=== PATIENT | female | born 1945 | race Caucasian/White ===

== ENCOUNTER → 2018-03-06 12:54 | Outpatient (CLI) | payer OTHER, SELFPAY ==
--- NOTE | 2018-03-06 | DI.US.S_ITS ---
PROCEDURE: US CAROTID DOPPLER BI INDICATIONS: TRANSIENT CEREBRAL ISCHEMIC ATTACK TECHNIQUE: Color and pulse Doppler interrogation was performed of both carotid systems, with image documentation and velocity measurements. COMPARISON: None. FINDINGS: Stenosis calculations are based on SRU (Society of Radiologists in Ultrasound) criteria. Right side: Brachial blood pressure: 131/78 mm Hg. Common carotid artery peak systolic velocity: 111 cm/sec. Internal carotid artery peak systolic velocity: 67 cm/sec. Internal carotid artery end diastolic velocity: 23 cm/sec. External carotid artery peak systolic velocity: 87 cm/sec. ICA/CCA peak systolic ratio: 0.6. Reyna scale imaging description: No calcific or soft plaque Percent internal carotid artery stenosis: None found. Vertebral artery: Flow direction is antegrade. Left side: Brachial blood pressure: 137/75 mm Hg. Common carotid artery peak systolic velocity: 104 cm/sec. Internal carotid artery peak systolic velocity: 77 cm/sec. Internal carotid artery end diastolic velocity: 24 cm/sec. External carotid artery peak systolic velocity: 90 cm/sec. ICA/CCA peak systolic ratio: 0.7. Reyna scale imaging description: Mild soft plaque Percent internal carotid artery stenosis: Less than 50% stenosis. Vertebral artery: Flow direction is antegrade. IMPRESSION: Less than 50% stenosis within the proximal left internal carotid artery, and no stenosis suspected on the right. Dictated by: Sundeep Reis M.D. on 03/06/2018 at 14:32 Approved by: Sundeep Reis M.D. on 03/06/2018 at 14:34
== END ==
PROVIDERS: PCP Internal Medicine; Visit Provider Internal Medicine
DX: I65.22 Occlusion and stenosis of left carotid artery (principal)
CPT/HCPCS: 93880

== ENCOUNTER → 2019-03-13 12:45 | Outpatient (CLI) | payer OTHER, SELFPAY ==
--- NOTE | 2019-03-13 | DI.RAD.S_ITS ---
PROCEDURE: XR HIP W PEL IF DONE BILAT 2V INDICATIONS: BILAT HIP PAIN TECHNIQUE: AP pelvis with lateral view(s) of the bilateral hip(s). COMPARISON: None. FINDINGS: Bones: No fractures or dislocations. Pelvic ring appears intact. No suspicious bony lesions. There is mild bilateral hip joint space narrowing. There is sclerosis of the bilateral sacroiliac joints. Soft tissues: The visualized bowel gas pattern is normal. No suspicious soft tissue calcifications. IMPRESSION: Mild hip joint space narrowing suggesting mild hip osteoarthritis. Mild sacroiliac joint sclerosis. No acute radiographic findings. Dictated by: Mare Pate M.D. on 03/13/2019 at 16:54 Approved by: Mare Pate M.D. on 03/13/2019 at 16:55
== END ==
PROVIDERS: PCP Internal Medicine; Visit Provider Internal Medicine
DX: M25.551 Pain in right hip (principal); M25.552 Pain in left hip
CPT/HCPCS: 73521

== ENCOUNTER 2022-02-17 12:43 | Emergency (ER) | payer OTHER, SELFPAY ==
[2022-02-17 12:50] VITALS: BP 175/86; PULSE 90; RESP 16; TEMP 37; O2SAT 96; BMI 21.6
--- NOTE | 2022-02-17 12:56 | DI.RAD.S_ITS ---
PROCEDURE: XR CHEST 1V INDICATIONS: chest pain TECHNIQUE: One view of the chest was acquired. COMPARISON: None. FINDINGS: Surgical changes and devices: Bilateral breast implants. Lungs and pleura: A calcific density in the left lower lung zone suspicious for an old granuloma. Small calcified granuloma are also suspected in right upper lung zone. Mild hyperinflation consistent with COPD. Lungs are otherwise clear. No pleural effusions or pneumothorax. Mediastinum: Mediastinal contours appear normal. Heart size is normal. Bones and chest wall: No suspicious bony lesions. Overlying soft tissues appear unremarkable. IMPRESSION: 1. No acute cardiopulmonary disease. 2. Suspect calcified granulomas in the lungs bilaterally. Dictated by: Mukesh Ross M.D. on 02/17/2022 at 13:40 Approved by: Mukesh Ross M.D. on 02/17/2022 at 13:41
[2022-02-17 13:31] LABS: Add Manual Diff / Slide Review NO; Basophils Absolute Auto 100 /uL (0-100); Basophils Percent Auto 1.1 % (0-2); Eosinophils Absolute Auto 100 /uL (0-450); Eosinophils Percent Auto 1.8 % (2-4); Hemoglobin 15.1 g/dL (12.0-16.0); Lymphocytes Absolute Auto 1000 /uL (1100-4500); Lymphocytes Percent Auto 17.7 % (25-40); Mean Corpuscular HGB Conc 33.4 % (30-36); Mean Corpuscular Hemoglobin 30.3 PG (26-34); Mean Corpuscular Volume 90.7 fL (80-100); Monocytes Absolute Auto 500 /uL (0-900); Monocytes Percent Auto 9.2 % (3-14); Neutrophils Absolute Auto 3900 /uL (1500-7000); Neutrophils Percent Auto 70.2 % (50-75); Platelet Count 285 X10^3/uL (150-400); Red Blood Cell Count 4.96 X10^6/uL (4.0-5.2); Red Cell Distribution Width 14.3 % (11.6-14.8); White Blood Cell Count 5.6 X10^3/uL (4.5-11.0)
[2022-02-17 13:36] LABS: Alanine Aminotransferase 15 IU/L (<35); Albumin 4.3 g/dL (3.5-5.0); Albumin Globulin Ratio 1.7 (1.0-2.8); Alkaline Phosphatase 67 U/L (38-126); Aspartate Aminotransferase 25 IU/L (14-36); BUN Creatinine Ratio 36.8 (6-22); Bilirubin Total 0.5 mg/dL (0.2-1.3); Blood Urea Nitrogen 25 mg/dL (7-17); Calcium 9.9 mg/dL (8.4-10.2); Carbon Dioxide 32 mmol/L (22-32); Chloride 104 mmol/L (98-107); Creatine Kinase 37 U/L (30-135); Estimated Glomerular Filt Rate > 60 mL/min (>60); Globulin 2.5 g/dL (1.7-4.1); Glucose 94 mg/dL (80-110); HEMOLYSIS < 15 (0-50); Lipase 193 U/L (23-300); Magnesium 2.3 mg/dL (1.6-2.3); Potassium 4.1 mmol/L (3.4-5.1); Sodium 138 mmol/L (137-145); Total Protein 6.8 g/dL (6.3-8.2)
[2022-02-17 13:47] LABS: Troponin I < 0.012 ng/mL (0.01-0.034)
--- NOTE | 2022-02-17 16:32 | PC.NURSE ---
Provider aware of pt refusal of trop/EKG.
[2022-02-17 16:34] VITALS: BP 185/89; PULSE 81; RESP 18; O2SAT 97
--- NOTE | 2022-02-17 19:55 | ED.CHESTPAIN ---
HPI - Chest Pain <LADONNA Washington - Last Filed: 02/17/22 20:06> General Chief Complaint: Chest Pain Stated Complaint: Chest pain Time Seen by Provider: 02/17/22 13:55 Source: patient Mode of arrival: Ambulatory Limitations: no limitations History of Present Illness HPI narrative: This is a 76-year-old female presents to the emergency department complaining of bilateral breast pain which she is sure is related to her breast implants which were placed in 1986. Patient states that she has had this pain for years, she lives on [facility] and states that she is not getting OBGYN care that she is looking for, she wants to have her breast implants removed, she is seeking an ultrasound of them today to evaluate why she has pain. Patient states that she is [place] and does not want to take any pain medications, she does not feel like she is cared for by her care providers where she lives. There was a long wait in the emergency department today and the nurse initiated order set for chest pain was selected. Patient denies any chest pain or chest pressure underneath her sternum, she states that her pain is more on the external and she is not sure why she has this pain every day since July of 2021. Related Data Home Medications Medication Instructions Recorded Confirmed albuterol sulfate 90 mcg/actuation 1 puff INH PRN PRN ##0 02/28/17 aerosol inhaler (Ventolin HFA) amlodipine 5 mg tablet (Norvasc) 5 mg PO Q DAY ##0 02/28/17 losartan 50 mg tablet 50 mg PO QDAY ##0 02/28/17 Allergies Allergy/AdvReac Type Severity Reaction Status Date / Time No Known Allergies Allergy Uncoded 10/25/17 12:46 Review of Systems <LADONNA Washington - Last Filed: 02/17/22 20:06> Review of Systems Narrative: General: denies fever, chills, malaise, sweats, fatigue Head/Neck: denies headache, neck pain, dizziness Eyes: denies visual changes, eye pain Cardio: denies chest pain, palpitations, edema Respiratory: denies dyspnea, cough, orthopnea GI: denies abdominal pain, nausea, vomiting, or diarrhea : denies dysuria, hematuria, urinary retention, frequency or incontinence MSK: denies joint pain, muscle weakness Skin: denies rash, itching, skin lesions or other Neuro: denies numbness, tingling Patient History <LADONNA Washington - Last Filed: 02/17/22 20:06> Social History Smoking Status: Never smoker Smoking Status: Never smoker alcohol intake frequency: 0-2 drinks per day Substance Use Type: does not use Exam <LADONNA Washington - Last Filed: 02/17/22 20:06> Narrative Exam Narrative: Independently reviewed vitals signs and nursing notes. General: cooperative, comfortable, in no acute distress, well groomed, slender, well dressed and anxious Head: atraumatic, symmetrical facial expressions Neck: supple Eyes: equal round and reactive, EOMI, conjunctiva normal Nose: nares patent, no rhinorrhea Mouth/Throat: moist mucus membranes Chest/Cardiovascular: regular rate and rhythm, no peripheral edema, warm extremities, no erythema, no anterior cervical lymphadenopathy or enlarged lymph nodes, no signs of infection, crepitus or abnormality, no edema Respiratory: normal effort, able to speak in complete sentences, no audible wheezing, stridor, or rales. No retractions or tachypnea. GI: abdomen soft, nontender to palpation, nondistended, no masses, no exquisite tenderness with exam, without guarding or rebound. MSK: moves all extremities, neurovascularly intact, no weakness, normal tone Skin: brisk capillary refill, no rash, no erythema Neuro: normal speech and cognition, A&O x3 Psych: mental status is grossly normal, congruent mood, normal affect, pleasant and cooperative Initial Vital Signs Initial Vital Signs: Vital Signs Temperature 98.6 F 02/17/22 12:50 Pulse Rate 90 02/17/22 12:50 Respiratory Rate 16 02/17/22 12:50 Blood Pressure 175/86 H 02/17/22 12:50 Pulse Oximetry 96 02/17/22 12:50 Oxygen Delivery Method 02/17/22 12:50 <Judy Ayon DO - Last Filed: 02/25/22 07:58> Initial Vital Signs Initial Vital Signs: Vital Signs Temperature 98.6 F 02/17/22 12:50 Pulse Rate 90 02/17/22 12:50 Respiratory Rate 16 02/17/22 12:50 Blood Pressure 175/86 H 02/17/22 12:50 Pulse Oximetry 96 02/17/22 12:50 Oxygen Delivery Method 02/17/22 12:50 Course <LADONNA Washington - Last Filed: 02/17/22 20:06> Orders Ordered: ED Orders 02/17/22 12:56 XR chest 1V Stat EKG-12 Lead Stat 02/17/22 13:14 Complete Blood Count AUTO DIFF Stat Comprehensive Metabolic Panel Stat Lipase Stat Magnesium Stat Troponin & CK Cardiac Panel Stat Vital Signs Vital signs: Vital Signs - 8 hr 02/17/22 12:50 02/17/22 16:34 Temperature 98.6 F Pulse Rate 90 81 Respiratory Rate 16 18 Blood Pressure 175/86 H 185/89 H Pulse Oximetry 96 97 Oxygen Delivery Method Room Air Room Air <Judy Ayon DO - Last Filed: 02/25/22 07:58> Orders Ordered: ED Orders 02/17/22 12:56 XR chest 1V Stat EKG-12 Lead Stat 02/17/22 13:14 Complete Blood Count AUTO DIFF Stat Comprehensive Metabolic Panel Stat Lipase Stat Magnesium Stat Troponin & CK Cardiac Panel Stat Vital Signs Vital signs: Vital Signs - 8 hr 02/17/22 12:50 02/17/22 16:34 Temperature 98.6 F Pulse Rate 90 81 Respiratory Rate 16 18 Blood Pressure 175/86 H 185/89 H Pulse Oximetry 96 97 Oxygen Delivery Method Room Air Room Air MDM - Chest Pain <LADONNA Washington - Last Filed: 02/17/22 20:06> Lab Data Result diagrams: 02/17/22 13:14 02/17/22 13:14 Labs: Lab Results 02/17/22 02/17/22 Range/Units 13:14 13:14 WBC 5.6 (4.5-11.0) X10^3/uL RBC 4.96 (4.0-5.2) X10^6/uL Hgb 15.1 (12.0-16.0) g/dL Hct 45.0 (36-46) % MCV 90.7 (80-100) fL MCH 30.3 (26-34) PG MCHC 33.4 (30-36) % RDW 14.3 (11.6-14.8) % Plt Count 285 (150-400) X10^3/uL Neut % (Auto) 70.2 (50-75) % Lymph % (Auto) 17.7 L (25-40) % Denali % (Auto) 9.2 (3-14) % Eos % (Auto) 1.8 L (2-4) % Baso % (Auto) 1.1 (0-2) % Neut # (Auto) 3900 (3246-5915) /uL Lymph # (Auto) 1000 L (6097-5221) /uL Denali # (Auto) 500 (0-900) /uL Eos # (Auto) 100 (0-450) /uL Baso # (Auto) 100 (0-100) /uL Sodium 138 (137-145) mmol/L Potassium 4.1 (3.4-5.1) mmol/L Chloride 104 (98-107) mmol/L Carbon Dioxide 32 (22-32) mmol/L BUN 25 H (7-17) mg/dL Creatinine 0.68 (0.52-1.04) mg/dL Estimated GFR > 60 (>60) mL/min BUN/Creatinine Ratio 36.8 H (6-22) Glucose 94 (80-110) mg/dL Calcium 9.9 (8.4-10.2) mg/dL Magnesium 2.3 (1.6-2.3) mg/dL Total Bilirubin 0.5 (0.2-1.3) mg/dL AST 25 (14-36) IU/L ALT 15 (<35) IU/L Alkaline Phosphatase 67 (38-126) U/L Total Creatine Kinase 37 (30-135) U/L CK-MB (CK-2) TNP CK-MB (CK-2) Rel Index TNP Troponin I < 0.012 (0.01-0.034) ng/mL Total Protein 6.8 (6.3-8.2) g/dL Albumin 4.3 (3.5-5.0) g/dL Globulin 2.5 (1.7-4.1) g/dL Albumin/Globulin Ratio 1.7 (1.0-2.8) Lipase 193 (23-300) U/L Imaging Data Chest x-ray: Radiologist's Impression: PROCEDURE:? XR CHEST 1V ? INDICATIONS:? chest pain ? TECHNIQUE:? One view of the chest was acquired.? ? COMPARISON:? None. ? FINDINGS:? ? Surgical changes and devices:? Bilateral breast implants.? ? Lungs and pleura:? A calcific density in the left lower lung zone suspicious for an old granuloma.? Small calcified granuloma are also suspected in right upper lung zone.? Mild hyperinflation consistent with COPD.? Lungs are otherwise clear.? No pleural effusions or pneumothorax.? ? Mediastinum:? Mediastinal contours appear normal.? Heart size is normal.? ? Bones and chest wall:? No suspicious bony lesions.? Overlying soft tissues appear unremarkable.? ? IMPRESSION:? ? 1. No acute cardiopulmonary disease. 2. Suspect calcified granulomas in the lungs bilaterally.? ? ? Dictated by: Mukesh Ross M.D. on 02/17/2022 at 13:40 ? ? Approved by: Mukesh Ross M.D. on 02/17/2022 at 13:41 ? ECG Data Interpretation: EKG independently reviewed by Dr. Ayon and reveals normal sinus rhythm at 83 bpm with regular axis and intervals. No STEMI, ST segment changes, arrhythmia, or acute ischemic changes. MDM Narrative Medical decision making narrative: This is a 76-year-old female presents to the emergency department complaining of pain from her bilateral breast implants that were placed in 1986. Patient was quite anxious and frustrated about her pain and the fact that she has woke up with this every day for months and even years, she refused her 2nd troponin lab draws, and her 2nd EKG, she refused any medications. She is seeking an ultrasound of her breast implants which was not able to be completed in the emergency department today due to high acuity of other patients with high census. 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 Her chest x-ray was negative for acute cardiopulmonary disease, there were visible calcified granulomas in the lungs bilaterally, patient is familiar with this states that she has a history of [place] long ago. She states that the granulomas are not new in her chest x-ray. She was given a referral to Dr. Galina OWEN here in the emergency department as the most likely positive follow-up for her, she is seeking breast implant removal that her insurance will cover, I am unaware of who might do that for her. I attached contact information for the breast clinic at [facility], the [facility], and Dr. Trent vega an OBGYN in [facility] who might be a realistic follow-up option for the patient. She is looking for an OBGYN who will give her some time and respect her wishes for no medications if possible. Patient was quite frustrated, she declined any pain medication and encouraged to follow-up with outpatient providers as referred and to go to her already scheduled outpatient appointments. Her lab work was completely benign, without any abnormalities. Patient is appropriate and amenable to discharge home. Vital signs are stable on repeat examination is unremarkable. Patient has been informed of results. Patient has been given strict return to ER precautions for any new or worsening symptoms. Patient understands to follow up closely with outpatient providers as instructed. Patient understands plan and agrees to discharge home. All questions and concerns answered at this time. <Judy Ayon, - Last Filed: 02/25/22 07:58> Lab Data Labs: Lab Results 02/17/22 02/17/22 Range/Units 13:14 13:14 WBC 5.6 (4.5-11.0) X10^3/uL RBC 4.96 (4.0-5.2) X10^6/uL Hgb 15.1 (12.0-16.0) g/dL Hct 45.0 (36-46) % MCV 90.7 (80-100) fL MCH 30.3 (26-34) PG MCHC 33.4 (30-36) % RDW 14.3 (11.6-14.8) % Plt Count 285 (150-400) X10^3/uL Neut % (Auto) 70.2 (50-75) % Lymph % (Auto) 17.7 L (25-40) % Denali % (Auto) 9.2 (3-14) % Eos % (Auto) 1.8 L (2-4) % Baso % (Auto) 1.1 (0-2) % Neut # (Auto) 3900 (1611-5525) /uL Lymph # (Auto) 1000 L (1174-3298) /uL Denali # (Auto) 500 (0-900) /uL Eos # (Auto) 100 (0-450) /uL Baso # (Auto) 100 (0-100) /uL Sodium 138 (137-145) mmol/L Potassium 4.1 (3.4-5.1) mmol/L Chloride 104 (98-107) mmol/L Carbon Dioxide 32 (22-32) mmol/L BUN 25 H (7-17) mg/dL Creatinine 0.68 (0.52-1.04) mg/dL Estimated GFR > 60 (>60) mL/min BUN/Creatinine Ratio 36.8 H (6-22) Glucose 94 (80-110) mg/dL Calcium 9.9 (8.4-10.2) mg/dL Magnesium 2.3 (1.6-2.3) mg/dL Total Bilirubin 0.5 (0.2-1.3) mg/dL AST 25 (14-36) IU/L ALT 15 (<35) IU/L Alkaline Phosphatase 67 (38-126) U/L Total Creatine Kinase 37 (30-135) U/L CK-MB (CK-2) TNP CK-MB (CK-2) Rel Index TNP Troponin I < 0.012 (0.01-0.034) ng/mL Total Protein 6.8 (6.3-8.2) g/dL Albumin 4.3 (3.5-5.0) g/dL Globulin 2.5 (1.7-4.1) g/dL Albumin/Globulin Ratio 1.7 (1.0-2.8) Lipase 193 (23-300) U/L Discharge Plan Departure Patient Disposition: Home Clinical Impression: Pain from breast implant Qualifiers: Encounter type: initial encounter Qualified Code(s): T85.848A - Pain due to other internal prosthetic devices, implants and grafts, initial encounter Breast implant capsular contracture Qualifiers: Encounter type: initial encounter Qualified Code(s): T85.44XA - Capsular contracture of breast implant, initial encounter Instructions: Breast Implant Removal Activity Restrictions/Additional Instructions: *You have been diagnosed with pain related to your breast implants, this could likely be capsular contracture which is score tissue and encapsulation of your implants. The treatment is removal, please follow-up with a primary care provider, I recommend an OBGYN who can refer you to a plastic surgeon for removal. I would recommend heat, gentle stretching, manipulation of the implants to help stretch the tissue around it, and to eat an anti-inflammatory diet to help with any inflammation that could be related. Please follow-up with OBGYN, you may need an outpatient ultrasound. You can call the number below to establish care with one of the primary care providers within [facility] system, and I wish you the best of luck in your outpatient search. I am sorry that it is challenging, I would refer to your insurance and see if you can find a plastic surgeon who is under there, and follow-up with them. I have appended to breast reconstruction Clinics below, you can contact them and see if that can be helpful. I would ask [employer]'s recommendation when you follow-up with them. I wish you the best, I am sorry for your pain. If you are concerned about medications, would recommend Tylenol as the safest option and treating yourself with 650 mg every 6-8 hours as needed. I would encourage activity, yoga, and gentle stretching. Breast Clinic at [facility]: Breast Cancer Treatment and Surgery [facility] [address] [place] [address] Call us:?[phone]:[phone] Fax:?[phone] *What to do: *Please continue to take your regular medications as directed. [ ] New medication prescriptions sent to your pharmacy: [ ] [ ] New medication written as a paper prescription [ x] No new medications given *Please follow up with your primary care provider in 2-3 days, call for an appointment. Let them know you were seen in the Emergency Department and that we asked that you be seen for follow-up. We will electronically transmit a record of today's note if your PCP is in our system *If you do not have a primary care provider please contact [phone] to establish care with one of the [facility] primary care providers. *Return to Emergency Department if you should have any new, worsening or concerning symptoms, such as [fever greater than 101F, chills, worsening pain, persistent vomiting or other bothersome symptoms] Prescriptions: No Action amlodipine [Norvasc] 5 MG tablet 5 mg PO Q DAY Qty: 0 losartan 50 MG tablet 50 mg PO QDAY Qty: 0 albuterol sulfate [Ventolin HFA] 90 MCG/PUFF HFA aerosol inhaler 1 puff INH PRN PRNQty: 0 Referrals: [facility] [Outside] [facility] [Outside] Marilyn Mckee MD [Primary Care Provider] - Mily Mojica MD [Physician] - Kirsty Hines MD [Non-Staff] - Visit Report Forms: Patient Portal/API <Judy Ayon DO - Last Filed: 02/25/22 07:58> Cosign ED Attending Raynaature Attestation: I was immediately available in the department for consultation. Documentation has been reviewed.
== END 2022-02-17 16:51 | disposition home or self-care (01) ==
PROVIDERS: Emergency Medicine; Emergency Provider Nurse Practitioner Critical Care Medicine; PCP Internal Medicine
DX: T85.848A Pain due to other internal prosthetic devices, implants and grafts, initial encounter (principal); T85.44XA Capsular contracture of breast implant, initial encounter
CPT/HCPCS: 36415; 71045; 80053; 82550; 83690; 83735; 84484; 85025; 93005; 99283; 99284